=== PATIENT | female | born 1975 | race Two or more races ===

== ENCOUNTER 2019-01-03 12:24 | Day surgery (SDC) | payer OTHER ==
[2019-01-03] MEDS ORDERED: LIDOCAINE 4% SOLUTION 50 ML BTL (13:32)
[2019-01-03] MEDS ORDERED: MIDAZOLAM 1 MG/ML 2 ML INJ ×2 (14:05)
[2019-01-03] MEDS ORDERED: FENTAnyl 50 MCG/ML VIAL (14:06)
== END 2019-01-03 14:56 | disposition home or self-care (01) ==
LOC: GIL 12:24
DX: T18.128A Food in esophagus causing other injury, initial encounter (principal); X58.XXXA Exposure to other specified factors, initial encounter; K22.0 Achalasia of cardia
CPT/HCPCS: 43235